=== PATIENT | female | born 1995 | race Two or more races ===

== ENCOUNTER 2024-02-24 20:08 | Inpatient (IN) | payer MEDICAID ==
[~2024-02-24] VITALS: Ht 149.9 cm; Wt 56.7 kg
[2024-02-25] MEDS ORDERED: DERMOPLAST 60ML BOTTLE TOP PRN
[2024-02-25] MEDS ORDERED: LIDOCAINE 2%HCL (LOCAL ANESTH.) INJ 20ML MDV IJ PRN
[2024-02-25] MEDS ORDERED: PHISODERM TOP SOLN 240ML BTL TOP PRN
[2024-02-25] MEDS ORDERED: WITCH HAZEL-GLYCERIN PAD TOP PRN
[2024-02-25] MEDS ORDERED: BUTORPHANOL TARTRATE 2 MG/1 ML VIAL IV PRN ×2
[2024-02-25] MEDS ORDERED: ONDANSETRON HCL 4 MG/2 ML VIAL IV PRN (00:30)
[2024-02-25 00:32] LABS: Basophils # (auto) 0 10 ^3/uL (0-0.2); Eosinophils # (auto) 0 10 ^3/uL (0-0.8); Eosinophils % (auto) 0.4 % (0.0-7.0); Lymphocytes # (auto) 2.3 10 ^3/uL (0.4-5.4); Monocytes # (auto) 0.5 10 ^3/uL (0-1.3); Monocytes % (auto) 5.2 % (0.0-12.0); Red Blood Cells 4.15 10^6/uL (4.0-5.20)
[2024-02-25 00:33] LABS: Urine Bacteria None Seen /hpf (None Seen)
[2024-02-25 00:36] LABS: Basophils % (auto) 0.3 % (0.0-2.0); Hematocrit 28.2 % (36.0-46.0); Hemoglobin 8.6 g/dL (12.2-16.2); Lymphocytes % (auto) 25.8 % (10.0-50.0); Mean Corpuscular Hemoglobin 20.8 pg (28.0-32.0); Mean Corpuscular Hgb Conc. 30.6 g/dL (32.0-36.0); Neutrophils % (auto) 68.3 % (37.0-80.0); Nucleated Red Blood Cells % 0.3 %; Red Cell Distribution Width 17.5 % (11.8-14.3); White Blood Cell 8.8 10^3/uL (4.4-10.8)
[2024-02-25 00:43] LABS: Urine Blood 1+ /uL (Negative); Urine Clarity Clear (Clear); Urine Color Colorless (Yellow); Urine Protein, UAD Negative (Negative); Urine Specific Gravity 1.007 (1.001-1.035); Urine Urobilinogen Normal (Negative); Urine WBC 5 /hpf (0 - 5); Urine pH 6.5 (5.0-9.0)
[2024-02-25 00:44] LABS: Albumin 3.6 g/dL (3.2-4.8); Alkaline Phosphatase 145 U/L (46-116); Anion Gap 9 (5-15); Aspartate Aminotransferase 9 U/L (13-40); BUN/Creatinine Ratio 16.7 (10.0-20.0); Bilirubin, Total 0.5 mg/dL (0.2-1.0); Blood Urea Nitrogen 8 mg/dL (9-23); Calcium 9.1 mg/dL (8.7-10.4); Carbon Dioxide 20 mmol/L (20-30); Chloride 107 mmol/L (98-107); Glucose 80 mg/dL (74-106); Potassium 3.8 mmol/L (3.5-5.1); Sodium 136 mmol/L (136-145); Total Protein 6.3 g/dL (5.7-8.2)
[2024-02-25 00:48] LABS: INR 0.92 (0.9-1.15); Partial Thromboplastin Time 24.5 SEC (24.5-34.5); Prothrombin Time 9.8 sec (9.3-11.8)
[2024-02-25 00:49] LABS: Alanine Aminotransferase < 9 U/L (7-40)
[2024-02-25 01:21] LABS: Anisocytosis Slight; Hypochromia Marked; Platelet Estimate Adequate
[2024-02-25 01:34] LABS: Amphetamine Screen, Urine Neg (NEGATIVE); Barbiturate Scree,Urine Neg (NEGATIVE); Benzodiazephine Screen, Urine Neg (NEGATIVE); Cocaine Screen, Urine Neg (NEGATIVE); Opiate Scree,Urine Neg (NEGATIVE); Phencyclidine Screen, Urine Neg (NEGATIVE)
[2024-02-25 01:35] LABS: Cannabinoid Screen, Urine Neg (NEGATIVE)
[2024-02-25] MEDS: LACTATED RINGER'S 1,000 ML IV SCH (03:45)
[2024-02-25 04:00] VITALS: BP 124/68; PULSE 68; RESP 16; TEMP 98; O2SAT 98
[2024-02-25] MEDS ORDERED: ONDANSETRON ODT 4 MG TAB PO PRN (04:00)
[2024-02-25] MEDS: IBUPROFEN 600 MG TAB PO PRN (05:25)
[2024-02-25] MEDS: LACT. RINGERS/OXYTOCIN 20UNITS 500 ML IV ONE ×2 (05:48→05:49)
[2024-02-25 07:00] VITALS: BP 110/55; PULSE 60; RESP 16; TEMP 97.7; O2SAT 100
[2024-02-25 10:43] VITALS: BP 108/54; PULSE 56; RESP 17; TEMP 98.2; O2SAT 98
[2024-02-25] MEDS: ACETAMINOPHEN 325 MG TAB PO PRN (11:45)
[2024-02-25 14:33] VITALS: BP 101/52; PULSE 58; RESP 18; TEMP 98.8; O2SAT 99
[2024-02-25 19:00] VITALS: BP 118/56; PULSE 60; RESP 16; TEMP 97.9; O2SAT 99
[2024-02-25] MEDS: DOCUSATE SOD 100 MG CAP PO SCH (22:08)
[2024-02-25 23:00] VITALS: BP 114/58; PULSE 55; RESP 16; TEMP 97.9; O2SAT 98
[2024-02-26 03:00] VITALS: BP 130/74; PULSE 52; RESP 16; TEMP 97.8; O2SAT 98
[2024-02-26 05:37] LABS: Basophils # (auto) 0.1 10 ^3/uL (0-0.2); Eosinophils # (auto) 0.1 10 ^3/uL (0-0.8); Eosinophils % (auto) 1.5 % (0.0-7.0); Hemoglobin 7.1 g/dL (12.2-16.2)
[2024-02-26 05:46] LABS: Basophils % (auto) 0.8 % (0.0-2.0); Hematocrit 23.3 % (36.0-46.0); Lymphocytes # (auto) 3.2 10 ^3/uL (0.4-5.4); Lymphocytes % (auto) 38.7 % (10.0-50.0); Mean Corpuscular Hgb Conc. 30.4 g/dL (32.0-36.0); Mean Corpuscular Volume 68.9 fL (80.0-100.0); Monocytes # (auto) 0.5 10 ^3/uL (0-1.3); Monocytes % (auto) 5.6 % (0.0-12.0); Neutrophils # (auto) 4.4 10 ^3/uL (1.6-8.6); Neutrophils % (auto) 53.4 % (37.0-80.0); Nucleated Red Blood Cells % 0.3 %; Red Blood Cells 3.38 10^6/uL (4.0-5.20); Red Cell Distribution Width 17.2 % (11.8-14.3); White Blood Cell 8.2 10^3/uL (4.4-10.8)
[2024-02-26 06:06] LABS: Platelet Estimate Adequate
[2024-02-26 06:07] LABS: RPR Non Reactive (Non Reactive)
[2024-02-26 06:07] LABS: Hypochromia Marked
[2024-02-26 06:08] LABS: Large Platelets FEW
[2024-02-26 07:15] VITALS: BP 104/57; PULSE 66; RESP 18; TEMP 97.8; O2SAT 99
[2024-02-26 07:30] VITALS: PULSE 66; RESP 18
[2024-02-26 11:00] VITALS: BP 118/56; PULSE 63; RESP 18; TEMP 98.6; O2SAT 99
[2024-02-26 14:30] VITALS: BP 105/55; PULSE 66; RESP 18; TEMP 98; O2SAT 100
[2024-02-26] MEDS ORDERED: PREN-96 PO (15:00)
[2024-02-26] MEDS ORDERED: FER325T PO (15:00)
[2024-02-26] MEDS ORDERED: ASCO500T11 PO (15:00)
[2024-02-26] MEDS ORDERED: IBU600T PO (15:00)
[2024-02-26] MEDS ORDERED: DOCU-265 PO (15:00)
[2024-02-27 12:06] LABS: Rubella Antibodies, IgG <0.90 index (Immune >0.99)
[2024-03-03 18:06] LABS: Treponema pallidum Ab (FTA-Ab) Non Reactive (Non Reactive)
== END 2024-02-26 16:02 | disposition home or self-care (01) | DRG 560 ==
LOC: LDRP 20:08 → OBSVTOIN 23:56 → LDRP 23:58
PROVIDERS: ADMIT Obstetrics & Gynecology; ATTEND Obstetrics & Gynecology
PROC: 10E0XZZ Delivery of Products of Conception, External Approach (ICD-10-PCS; principal; 2024-02-25)
DX: O80 Encounter for full-term uncomplicated delivery (principal); Z37.0 Single live birth; R71.0 Precipitous drop in hematocrit; Z3A.37 37 weeks gestation of pregnancy; Z91.199 Patient's noncompliance with other medical treatment and regimen due to unspecified reason
CPT/HCPCS: 36415; 59025; 59409; 80053; 80307; 81001; 85025; 85610; 85730; 86592; 86703; 86762; 86803; 86850; 86900; 86901; 87340; 94760; 96365; 96366; G0378; J2590